=== PATIENT | female | born 1960 | race Caucasian/White ===

== ENCOUNTER 2016-11-26 23:35 | Emergency (ER) | payer OTHER ==
[~2016-11-26] VITALS: Ht 154.9 cm; Wt 81.7 kg
[2016-11-26 23:35] VITALS: BP 161/94
[2016-11-27] MEDS ORDERED: TRAMADOL 50 MG50 MG PO (00:09)
[2016-11-27] MEDS ORDERED: PENICILLIN VK500 M1 PO (00:09)
== END 2016-11-27 00:28 | disposition home or self-care (01) ==
LOC: ER 23:35
DX: K04.6 Periapical abscess with sinus (principal); K02.9 Dental caries, unspecified; Z88.6 Allergy status to analgesic agent